=== PATIENT | female | born 1955 | race Caucasian/White ===

== ENCOUNTER → 2017-07-25 10:45 | Outpatient (CLI) | payer BC, SELFPAY ==
--- NOTE | 2017-07-25 11:05 | XR_ITS ---
XR chest 2V HISTORY: ITS.REASON: HTN ORDERING PHYSICIAN: David Ng PATIENT AGE: 62 years COMPARISON: 06/19/2016 FINDINGS: The cardiomediastinal silhouette and pulmonary vascularity are within normal limits. The lungs are clear without infiltrates, suspicious nodules, or pleural effusions. No acute bony abnormalities. IMPRESSION: No change with no acute finding
[2017-07-25 11:14] LABS: Basophils # 0.1 K/mm3 (0-0.2); Basophils % 0.9 % (0.1-2.0); Eosinophils # 0.2 K/mm3 (0.0-0.4); Eosinophils % 3.2 % (0.1-12.0); Hematocrit 39.4 % (37.0-47.0); Hemoglobin 12.9 g/dL (12.2-16.2); Lymphocytes % 32.4 K/mm3 (10-50); Mean Corpuscular HGB Conc 32.7 g/dL (31.8-35.4); Mean Corpuscular Hemoglobin 28.3 pg (27.0-31.2); Mean Corpuscular Volume 86.5 fl (81-99); Mean Platelet Volume 7.5 fl (7.4-10.4); Monocytes # 0.4 K/mm3 (0.1-1.0); Monocytes % 5.7 % (1.7-9.3); Neutrophils # 3.5 K/mm3 (1.8-7.8); Neutrophils % 57.9 % (37.0-80.0); Platelet Count 306 K/mm3 (142-424); Red Blood Count 4.55 M/mm3 (4.20-5.40); Red Cell Distribution Width 12.6 % (11.5-17.5); White Blood Count 6.1 K/mm3 (4.8-10.8)
[2017-07-25 11:35] LABS: Alanine Aminotransferase 77 U/L (12-78); Albumin Level 3.5 gm/dL (3.4-5.0); Albumin/Globulin Ratio 0.9 (1.1-1.8); Alkaline Phosphatase 89 U/L (46-116); Anion Gap 8.1 mEq/L (5-15); Aspartate Amino Transferase 33 U/L (15-37); Bilirubin,Total 0.5 mg/dL (0.2-1.0); Blood Urea Nitrogen 11 mg/dL (7-18); Calcium 8.9 mg/dL (8.5-10.1); Carbon Dioxide 32 mmol/L (21.0-32.0); Chloride 105 mmol/L (98-107); Creatinine,Serum 0.71 mg/dL (0.55-1.02); Estimated Glomerular Filt Rate 83 ml/min (>60); GFR (African American) 101 ML/MIN (>60); Globulin 3.7 gm/dl (1.3-3.2); Glucose 110 mg/dL (74-106); Potassium 4.1 mmoL/L (3.5-5.1); Sodium 141 mmol/L (136-145); Total Protein,Serum 7.2 gm/dL (6.4-8.2)
== END ==
PROVIDERS: PCP Internal Medicine; Visit Provider Orthopaedic Surgery
DX: M17.0 Bilateral primary osteoarthritis of knee (principal); Z01.818 Encounter for other preprocedural examination
CPT/HCPCS: 36415; 71046; 80053; 85025; 93005

== ENCOUNTER → 2017-09-10 10:00 | Outpatient (REF) | payer BC, SELFPAY ==
[2017-09-10 13:40] LABS: Basophils # 0.1 K/mm3 (0-0.2); Eosinophils # 0.4 K/mm3 (0.0-0.4); Eosinophils % 6.2 % (0.1-12.0); Hematocrit 35.4 % (37.0-47.0); Hemoglobin 11.5 g/dL (12.2-16.2); Lymphocytes # 1.8 K/mm3 (0.7-4.5); Lymphocytes % 30.2 K/mm3 (10-50); Mean Corpuscular HGB Conc 32.5 g/dL (31.8-35.4); Mean Corpuscular Hemoglobin 28.7 pg (27.0-31.2); Mean Corpuscular Volume 88.6 fl (81-99); Mean Platelet Volume 7.2 fl (7.4-10.4); Monocytes # 0.3 K/mm3 (0.1-1.0); Neutrophils # 3.4 K/mm3 (1.8-7.8); Neutrophils % 57.5 % (37.0-80.0); Platelet Count 432 K/mm3 (142-424); Red Blood Count 3.99 M/mm3 (4.20-5.40); Red Cell Distribution Width 12.6 % (11.5-17.5); White Blood Count 5.9 K/mm3 (4.8-10.8)
[2017-09-10 13:50] LABS: C-Reactive Protein 2.2 mg/L (0.0-0.9); Creatinine,Serum 0.76 mg/dL (0.55-1.02); Estimated Glomerular Filt Rate 77 ml/min (>60); GFR (African American) 93 ML/MIN (>60)
== END ==
LOC: LAB.CARL 10:00
PROVIDERS: Visit Provider Internal Medicine
DX: M71.461 Calcium deposit in bursa, right knee (principal)
CPT/HCPCS: 82565; 85025; 86140

== ENCOUNTER → 2017-09-17 11:08 | Outpatient (REF) | payer BC, SELFPAY ==
[2017-09-17 13:56] LABS: C-Reactive Protein 0.5 mg/L (0.0-0.9); Creatinine,Serum 0.83 mg/dL (0.55-1.02); Estimated Glomerular Filt Rate 70 ml/min (>60); GFR (African American) 84 ML/MIN (>60)
[2017-09-17 14:02] LABS: Basophils % 0.6 % (0.1-2.0); Eosinophils # 0.4 K/mm3 (0.0-0.4); Eosinophils % 7.5 % (0.1-12.0); Hematocrit 34.9 % (37.0-47.0); Hemoglobin 11.9 g/dL (12.2-16.2); Lymphocytes # 1.4 K/mm3 (0.7-4.5); Lymphocytes % 27.8 K/mm3 (10-50); Mean Corpuscular Hemoglobin 29.5 pg (27.0-31.2); Mean Corpuscular Volume 86.8 fl (81-99); Mean Platelet Volume 7.5 fl (7.4-10.4); Monocytes # 0.3 K/mm3 (0.1-1.0); Monocytes % 5.4 % (1.7-9.3); Neutrophils % 58.7 % (37.0-80.0); Platelet Count 342 K/mm3 (142-424); Red Blood Count 4.02 M/mm3 (4.20-5.40); White Blood Count 5.1 K/mm3 (4.8-10.8)
== END ==
LOC: LAB.CARL 11:08
PROVIDERS: Visit Provider Internal Medicine
DX: Z96.651 Presence of right artificial knee joint (principal)
CPT/HCPCS: 82565; 85025; 86140

== ENCOUNTER → 2017-09-24 10:20 | Outpatient (REF) | payer BC, SELFPAY ==
[2017-09-24 13:27] LABS: Basophils # 0.1 K/mm3 (0-0.2); Basophils % 2.1 % (0.1-2.0); Eosinophils # 0.5 K/mm3 (0.0-0.4); Eosinophils % 12.1 % (0.1-12.0); Hematocrit 34.3 % (37.0-47.0); Hemoglobin 11.3 g/dL (12.2-16.2); Lymphocytes # 1.4 K/mm3 (0.7-4.5); Mean Corpuscular HGB Conc 32.9 g/dL (31.8-35.4); Mean Corpuscular Hemoglobin 28.8 pg (27.0-31.2); Mean Corpuscular Volume 87.5 fl (81-99); Mean Platelet Volume 7.5 fl (7.4-10.4); Monocytes # 0.4 K/mm3 (0.1-1.0); Monocytes % 8.5 % (1.7-9.3); Neutrophils # 1.8 K/mm3 (1.8-7.8); Neutrophils % 44.4 % (37.0-80.0); Platelet Count 321 K/mm3 (142-424); Red Blood Count 3.92 M/mm3 (4.20-5.40); Red Cell Distribution Width 13.4 % (11.5-17.5); White Blood Count 4.1 K/mm3 (4.8-10.8)
[2017-09-24 16:44] LABS: C-Reactive Protein 1.3 mg/L (0.0-0.9); Creatinine,Serum 0.91 mg/dL (0.55-1.02); Estimated Glomerular Filt Rate 63 ml/min (>60); GFR (African American) 76 ML/MIN (>60)
== END ==
LOC: LAB.CARL 10:20
PROVIDERS: Visit Provider Internal Medicine
DX: Z96.651 Presence of right artificial knee joint (principal)
CPT/HCPCS: 82565; 85025; 86140

== ENCOUNTER → 2017-10-01 11:07 | Outpatient (REF) | payer BC, SELFPAY ==
[2017-10-01 14:09] LABS: C-Reactive Protein 0.3 mg/L (0.0-0.9); Creatinine,Serum 0.91 mg/dL (0.55-1.02); Estimated Glomerular Filt Rate 63 ml/min (>60); GFR (African American) 76 ML/MIN (>60)
[2017-10-01 14:35] LABS: Basophils # 0.1 K/mm3 (0-0.2); Basophils % 3.2 % (0.1-2.0); Eosinophils # 0.3 K/mm3 (0.0-0.4); Eosinophils % 9.3 % (0.1-12.0); Hematocrit 35.7 % (37.0-47.0); Lymphocytes # 1.2 K/mm3 (0.7-4.5); Lymphocytes % 33.3 K/mm3 (10-50); Mean Corpuscular HGB Conc 33.5 g/dL (31.8-35.4); Mean Corpuscular Hemoglobin 29.2 pg (27.0-31.2); Mean Corpuscular Volume 87.2 fl (81-99); Mean Platelet Volume 7.5 fl (7.4-10.4); Monocytes # 0.2 K/mm3 (0.1-1.0); Monocytes % 6.1 % (1.7-9.3); Neutrophils # 1.8 K/mm3 (1.8-7.8); Neutrophils % 48.1 % (37.0-80.0); Platelet Count 289 K/mm3 (142-424); Red Blood Count 4.09 M/mm3 (4.20-5.40); Red Cell Distribution Width 13.3 % (11.5-17.5); White Blood Count 3.7 K/mm3 (4.8-10.8)
== END ==
LOC: LAB.CARL 11:07
PROVIDERS: Visit Provider Internal Medicine
DX: Z96.651 Presence of right artificial knee joint (principal)
CPT/HCPCS: 82565; 85025; 86140

== ENCOUNTER → 2017-10-08 10:57 | Outpatient (REF) | payer BC, SELFPAY ==
[2017-10-08 14:29] LABS: Basophils # 0.1 K/mm3 (0-0.2); Eosinophils # 0.3 K/mm3 (0.0-0.4); Eosinophils % 7.6 % (0.1-12.0); Hematocrit 35.5 % (37.0-47.0); Hemoglobin 11.7 g/dL (12.2-16.2); Lymphocytes # 1.2 K/mm3 (0.7-4.5); Lymphocytes % 30.4 K/mm3 (10-50); Mean Corpuscular Hemoglobin 28.5 pg (27.0-31.2); Mean Corpuscular Volume 86.5 fl (81-99); Mean Platelet Volume 7.6 fl (7.4-10.4); Monocytes # 0.3 K/mm3 (0.1-1.0); Monocytes % 6.6 % (1.7-9.3); Neutrophils % 53.4 % (37.0-80.0); Platelet Count 267 K/mm3 (142-424); White Blood Count 3.8 K/mm3 (4.8-10.8)
[2017-10-08 14:36] LABS: Creatinine,Serum 0.96 mg/dL (0.55-1.02); Estimated Glomerular Filt Rate 59 ml/min (>60); GFR (African American) 71 ML/MIN (>60)
[2017-10-08 14:42] LABS: C-Reactive Protein < 0.2 mg/L (0.0-0.9)
== END ==
LOC: LAB.CARL 10:57
PROVIDERS: Visit Provider Internal Medicine
DX: T84.54XA Infection and inflammatory reaction due to internal left knee prosthesis, initial encounter (principal)
CPT/HCPCS: 82565; 85025; 86140

== ENCOUNTER → 2017-10-15 11:22 | Outpatient (REF) | payer BC, SELFPAY ==
[2017-10-15 13:24] LABS: Basophils # 0.1 K/mm3 (0-0.2); Eosinophils # 0.3 K/mm3 (0.0-0.4); Eosinophils % 7.7 % (0.1-12.0); Hematocrit 36.3 % (37.0-47.0); Hemoglobin 12.2 g/dL (12.2-16.2); Lymphocytes # 1.2 K/mm3 (0.7-4.5); Lymphocytes % 30.7 K/mm3 (10-50); Mean Corpuscular HGB Conc 33.5 g/dL (31.8-35.4); Mean Corpuscular Hemoglobin 28.4 pg (27.0-31.2); Mean Corpuscular Volume 84.6 fl (81-99); Mean Platelet Volume 7.3 fl (7.4-10.4); Monocytes # 0.3 K/mm3 (0.1-1.0); Monocytes % 8.5 % (1.7-9.3); Neutrophils # 1.9 K/mm3 (1.8-7.8); Platelet Count 282 K/mm3 (142-424); Red Blood Count 4.29 M/mm3 (4.20-5.40); Red Cell Distribution Width 12.9 % (11.5-17.5); White Blood Count 3.8 K/mm3 (4.8-10.8)
[2017-10-15 14:33] LABS: C-Reactive Protein 0.3 mg/L (0.0-0.9); Creatinine,Serum 0.74 mg/dL (0.55-1.02); Estimated Glomerular Filt Rate 80 ml/min (>60); GFR (African American) 96 ML/MIN (>60)
== END ==
LOC: LAB.CARL 11:22
PROVIDERS: Visit Provider Internal Medicine
DX: T84.54XA Infection and inflammatory reaction due to internal left knee prosthesis, initial encounter (principal)
CPT/HCPCS: 82565; 85025; 86140

== ENCOUNTER → 2017-12-14 08:28 | Outpatient (CLI) | payer BC, SELFPAY ==
[2017-12-14 08:43] LABS: Basophils # 0.1 K/mm3 (0-0.2); Basophils % 1.4 % (0.1-2.0); Eosinophils # 0.3 K/mm3 (0.0-0.4); Eosinophils % 6.8 % (0.1-12.0); Hematocrit 38.9 % (37.0-47.0); Hemoglobin 13.1 g/dL (12.2-16.2); Lymphocytes # 1.9 K/mm3 (0.7-4.5); Lymphocytes % 38.5 K/mm3 (10-50); Mean Corpuscular HGB Conc 33.8 g/dL (31.8-35.4); Mean Corpuscular Hemoglobin 27.7 pg (27.0-31.2); Mean Corpuscular Volume 82.2 fl (81-99); Mean Platelet Volume 7.3 fl (7.4-10.4); Monocytes # 0.3 K/mm3 (0.1-1.0); Monocytes % 6.2 % (1.7-9.3); Neutrophils # 2.3 K/mm3 (1.8-7.8); Neutrophils % 47.1 % (37.0-80.0); Platelet Count 339 K/mm3 (142-424); Red Blood Count 4.74 M/mm3 (4.20-5.40); Red Cell Distribution Width 12.9 % (11.5-17.5); White Blood Count 4.9 K/mm3 (4.8-10.8)
[2017-12-14 09:09] LABS: Creatinine,Serum 0.85 mg/dL (0.55-1.02); Estimated Glomerular Filt Rate 68 ml/min (>60); GFR (African American) 82 ML/MIN (>60)
[2017-12-14 09:13] LABS: C-Reactive Protein < 0.2 mg/L (0.0-0.9)
== END ==
PROVIDERS: Visit Provider Physician Assistant Medical
DX: T81.4XXA Infection following a procedure, initial encounter (principal)
CPT/HCPCS: 36415; 82565; 85025; 86140

== ENCOUNTER → 2018-05-13 10:54 | Outpatient (CLI) | payer BC, SELFPAY ==
[2018-05-13 13:55] LABS: C-Reactive Protein 4.3 mg/L (0.0-0.9)
[2018-05-13 13:58] LABS: Basophils % 0.8 % (0.1-2.0); Eosinophils # 0.2 K/mm3 (0.0-0.4); Eosinophils % 3.7 % (0.1-12.0); Hematocrit 34.9 % (37.0-47.0); Hemoglobin 11.6 g/dL (12.2-16.2); Lymphocytes # 1.5 K/mm3 (0.7-4.5); Lymphocytes % 33.7 % (10-50); Mean Corpuscular HGB Conc 33.2 g/dL (31.8-35.4); Mean Corpuscular Hemoglobin 28.2 pg (27.0-31.2); Mean Corpuscular Volume 84.7 fl (81-99); Mean Platelet Volume 8.4 fl (7.4-10.4); Monocytes # 0.3 K/mm3 (0.1-1.0); Monocytes % 7.5 % (1.7-9.3); Neutrophils # 2.4 K/mm3 (1.8-7.8); Neutrophils % 54.2 % (37.0-80.0); Platelet Count 382 K/mm3 (142-424); Red Blood Count 4.11 M/mm3 (4.20-5.40); Red Cell Distribution Width 12.5 % (11.5-17.5); White Blood Count 4.5 K/mm3 (4.8-10.8)
[2018-05-13 16:12] LABS: Erythrocyte Sedimentation Rate 31 mm/hr (0-30)
== END ==
PROVIDERS: PCP Internal Medicine; Visit Provider Orthopaedic Surgery
DX: T84.54XA Infection and inflammatory reaction due to internal left knee prosthesis, initial encounter (principal)
CPT/HCPCS: 36415; 85025; 85651; 86140

== ENCOUNTER → 2018-08-21 09:56 | Outpatient (CLI) | payer BC, SELFPAY ==
[2018-08-21 14:04] LABS: Basophils # 0.1 K/mm3 (0-0.2); Basophils % 0.9 % (0.1-2.0); Eosinophils # 0.2 K/mm3 (0.0-0.4); Eosinophils % 3.3 % (0.1-12.0); Hematocrit 36.5 % (37.0-47.0); Hemoglobin 11.9 g/dL (12.2-16.2); Lymphocytes # 1.6 K/mm3 (0.7-4.5); Lymphocytes % 26.7 % (10-50); Mean Corpuscular HGB Conc 32.8 g/dL (31.8-35.4); Mean Corpuscular Hemoglobin 26.5 pg (27.0-31.2); Mean Corpuscular Volume 80.9 fl (81-99); Monocytes # 0.3 K/mm3 (0.1-1.0); Neutrophils # 3.8 K/mm3 (1.8-7.8); Neutrophils % 64.1 % (37.0-80.0); Platelet Count 497 K/mm3 (142-424); Red Blood Count 4.51 M/mm3 (4.20-5.40); Red Cell Distribution Width 13.7 % (11.5-17.5)
[2018-08-21 14:39] LABS: Alanine Aminotransferase 46 U/L (12-78); Albumin Level 3.7 gm/dL (3.4-5.0); Albumin/Globulin Ratio 0.9 (1.1-1.8); Alkaline Phosphatase 139 U/L (46-116); Anion Gap 15.3 mEq/L (5-15); Aspartate Amino Transferase 27 U/L (15-37); Bilirubin,Total 0.4 mg/dL (0.2-1.0); Blood Urea Nitrogen 15 mg/dL (7-18); C-Reactive Protein 3.9 mg/L (0.0-0.9); Calcium 9.5 mg/dL (8.5-10.1); Carbon Dioxide 26 mmol/L (21.0-32.0); Chloride 103 mmol/L (98-107); Creatinine,Serum 0.79 mg/dL (0.55-1.02); Estimated Glomerular Filt Rate 74 ml/min (>60); GFR (African American) 89 ML/MIN (>60); Globulin 4.1 gm/dl (1.3-3.2); Glucose 99 mg/dL (74-106); Potassium 4.3 mmoL/L (3.5-5.1); Sodium 140 mmol/L (136-145); Total Protein,Serum 7.8 gm/dL (6.4-8.2)
[2018-08-21 14:40] LABS: Erythrocyte Sedimentation Rate 61 mm/hr (0-30)
== END ==
PROVIDERS: PCP Internal Medicine; Visit Provider Internal Medicine
DX: M25.461 Effusion, right knee (principal); Z96.651 Presence of right artificial knee joint
CPT/HCPCS: 36415; 80053; 85025; 85651; 86140

== ENCOUNTER → 2018-09-24 10:54 | Outpatient (CLI) | payer BC, SELFPAY ==
[2018-09-24 14:23] LABS: Basophils # 0.1 K/mm3 (0-0.2); Eosinophils # 0.2 K/mm3 (0.0-0.4); Eosinophils % 4.2 % (0.1-12.0); Hematocrit 35.2 % (37.0-47.0); Hemoglobin 11.8 g/dL (12.2-16.2); Lymphocytes # 2.1 K/mm3 (0.7-4.5); Mean Corpuscular HGB Conc 33.4 g/dL (31.8-35.4); Mean Corpuscular Hemoglobin 26.5 pg (27.0-31.2); Mean Corpuscular Volume 79.3 fl (81-99); Mean Platelet Volume 7.2 fl (7.4-10.4); Monocytes # 0.3 K/mm3 (0.1-1.0); Monocytes % 5.5 % (1.7-9.3); Neutrophils # 2.7 K/mm3 (1.8-7.8); Neutrophils % 50.4 % (37.0-80.0); Platelet Count 370 K/mm3 (142-424); Red Blood Count 4.44 M/mm3 (4.20-5.40); Red Cell Distribution Width 14.2 % (11.5-17.5); White Blood Count 5.3 K/mm3 (4.8-10.8)
[2018-09-24 15:05] LABS: Erythrocyte Sedimentation Rate 14 mm/hr (0-30)
[2018-09-24 16:05] LABS: Alanine Aminotransferase 41 U/L (12-78); Albumin Level 3.6 gm/dL (3.4-5.0); Alkaline Phosphatase 106 U/L (46-116); Anion Gap 14.7 mEq/L (5-15); Aspartate Amino Transferase 20 U/L (15-37); Bilirubin,Total 0.4 mg/dL (0.2-1.0); Blood Urea Nitrogen 14 mg/dL (7-18); C-Reactive Protein 1.3 mg/L (0.0-0.9); Calcium 9.2 mg/dL (8.5-10.1); Carbon Dioxide 26 mmol/L (21.0-32.0); Chloride 103 mmol/L (98-107); Creatinine,Serum 0.75 mg/dL (0.55-1.02); Estimated Glomerular Filt Rate 78 ml/min (>60); GFR (African American) 94 ML/MIN (>60); Globulin 3.7 gm/dl (1.3-3.2); Glucose 96 mg/dL (74-106); Potassium 3.7 mmoL/L (3.5-5.1); Sodium 140 mmol/L (136-145); Thyroid Stimulating Hormone 0.14 uIU/ml (0.358-3.740); Total Protein,Serum 7.3 gm/dL (6.4-8.2)
== END ==
PROVIDERS: PCP Internal Medicine; Visit Provider Internal Medicine
DX: E03.9 Hypothyroidism, unspecified (principal); E78.5 Hyperlipidemia, unspecified; I10 Essential (primary) hypertension; R79.82 Elevated C-reactive protein (CRP)
CPT/HCPCS: 36415; 80053; 84443; 85025; 85651; 86140

== ENCOUNTER → 2018-11-20 10:57 | Outpatient (CLI) | payer BC, SELFPAY ==
[2018-11-20 13:58] LABS: Basophils # 0.1 K/mm3 (0-0.2); Basophils % 1.4 % (0.1-2.0); Eosinophils # 0.2 K/mm3 (0.0-0.4); Eosinophils % 4.4 % (0.1-12.0); Hematocrit 39.8 % (37.0-47.0); Hemoglobin 12.8 g/dL (12.2-16.2); Lymphocytes % 36.7 % (10-50); Mean Corpuscular HGB Conc 32.2 g/dL (31.8-35.4); Mean Corpuscular Hemoglobin 27.2 pg (27.0-31.2); Mean Corpuscular Volume 84.4 fl (81-99); Mean Platelet Volume 7.5 fl (7.4-10.4); Monocytes # 0.3 K/mm3 (0.1-1.0); Monocytes % 4.9 % (1.7-9.3); Neutrophils # 2.9 K/mm3 (1.8-7.8); Neutrophils % 52.7 % (37.0-80.0); Platelet Count 373 K/mm3 (142-424); Red Blood Count 4.71 M/mm3 (4.20-5.40); Red Cell Distribution Width 15.1 % (11.5-17.5); White Blood Count 5.4 K/mm3 (4.8-10.8)
[2018-11-20 14:22] LABS: C-Reactive Protein 1.2 mg/L (0.0-0.9)
[2018-11-20 15:08] LABS: Erythrocyte Sedimentation Rate 19 mm/hr (0-30)
== END ==
PROVIDERS: PCP Internal Medicine; Visit Provider Internal Medicine
DX: T84.53XA Infection and inflammatory reaction due to internal right knee prosthesis, initial encounter (principal)
CPT/HCPCS: 36415; 85025; 85651; 86140

== ENCOUNTER → 2019-01-23 10:17 | Outpatient (CLI) | payer BC, SELFPAY ==
[2019-01-23 15:33] LABS: Basophils # 0.1 K/mm3 (0-0.2); Basophils % 1.2 % (0.1-2.0); Eosinophils # 0.2 K/mm3 (0.0-0.4); Eosinophils % 4.9 % (0.1-12.0); Hematocrit 35.8 % (37.0-47.0); Hemoglobin 11.3 g/dL (12.2-16.2); Lymphocytes # 1.7 K/mm3 (0.7-4.5); Lymphocytes % 34.3 % (10-50); Mean Corpuscular HGB Conc 31.7 g/dL (31.8-35.4); Mean Corpuscular Hemoglobin 26.9 pg (27.0-31.2); Mean Corpuscular Volume 85.1 fl (81-99); Mean Platelet Volume 7.3 fl (7.4-10.4); Monocytes # 0.2 K/mm3 (0.1-1.0); Neutrophils # 2.7 K/mm3 (1.8-7.8); Neutrophils % 55.6 % (37.0-80.0); Platelet Count 569 K/mm3 (142-424); Red Blood Count 4.21 M/mm3 (4.20-5.40); Red Cell Distribution Width 13.3 % (11.5-17.5); White Blood Count 4.9 K/mm3 (4.8-10.8)
[2019-01-23 15:47] LABS: C-Reactive Protein 1.5 mg/dL (0.0-0.9)
[2019-01-23 15:56] LABS: Erythrocyte Sedimentation Rate 66 mm/hr (0-30)
== END ==
PROVIDERS: PCP Internal Medicine; Visit Provider Internal Medicine
DX: L08.9 Local infection of the skin and subcutaneous tissue, unspecified (principal); M25.561 Pain in right knee
CPT/HCPCS: 36415; 85025; 85651; 86140

== ENCOUNTER → 2019-05-14 10:04 | Outpatient (CLI) | payer BC, SELFPAY ==
[2019-05-14 14:55] LABS: Basophils # 0.1 K/mm3 (0-0.2); Basophils % 1.2 % (0.1-2.0); Eosinophils # 0.2 K/mm3 (0.0-0.4); Hemoglobin 11.9 g/dL (12.2-16.2); Lymphocytes # 1.9 K/mm3 (0.7-4.5); Lymphocytes % 28.3 % (10-50); Mean Corpuscular HGB Conc 31.4 g/dL (31.8-35.4); Mean Corpuscular Hemoglobin 26.2 pg (27.0-31.2); Mean Corpuscular Volume 83.3 fl (81-99); Mean Platelet Volume 8.2 fl (7.4-10.4); Monocytes # 0.3 K/mm3 (0.1-1.0); Monocytes % 4.9 % (1.7-9.3); Neutrophils # 4.1 K/mm3 (1.8-7.8); Neutrophils % 62.6 % (37.0-80.0); Platelet Count 433 K/mm3 (142-424); Red Blood Count 4.56 M/mm3 (4.20-5.40); Red Cell Distribution Width 13.5 % (11.5-17.5); White Blood Count 6.6 K/mm3 (4.8-10.8)
[2019-05-14 15:50] LABS: C-Reactive Protein 2.5 mg/dL (0.0-0.9)
[2019-05-14 17:30] LABS: Erythrocyte Sedimentation Rate 24 mm/hr (0-30)
== END ==
PROVIDERS: Visit Provider Internal Medicine
DX: L08.9 Local infection of the skin and subcutaneous tissue, unspecified (principal); M25.561 Pain in right knee
CPT/HCPCS: 36415; 85025; 85651; 86140

== ENCOUNTER → 2019-06-23 11:30 | Outpatient (CLI) | payer BC, SELFPAY ==
[2019-06-23 14:22] LABS: Reticulocyte % (Auto) 1.2 % (0.9-3.2)
[2019-06-24 09:45] LABS: Iron 61 ug/dL (27-139); UIBC 175 ug/dL (118-369)
[2019-06-25 10:47] LABS: Vitamin B12 453 pg/mL (232-1245)
[2019-06-25 10:48] LABS: Iron Saturation 26 % (15-55)
== END ==
PROVIDERS: Visit Provider Internal Medicine
DX: D64.9 Anemia, unspecified (principal)
CPT/HCPCS: 36415; 82607; 83540; 83550; 85044

== ENCOUNTER → 2019-07-15 14:03 | Outpatient (POV) | payer BC, SELFPAY | PROVIDERS: PCP Dermatology; Visit Provider Dermatology | DX: Z00.00 Encounter for general adult medical examination without abnormal findings (principal) ==

== ENCOUNTER → 2019-11-17 09:53 | Outpatient (CLI) | payer BC, SELFPAY ==
[2019-11-17 13:55] LABS: C-Reactive Protein 30.9 mg/L (0-4)
[2019-11-17 15:00] LABS: Erythrocyte Sedimentation Rate 53 mm/hr (0-30)
[2019-11-17 15:37] LABS: Basophils # 0.1 K/mm3 (0-0.2); Eosinophils # 0.3 K/mm3 (0.0-0.4); Eosinophils % 4.7 % (0.1-12.0); Hematocrit 34.5 % (37.0-47.0); Hemoglobin 11.7 g/dL (12.2-16.2); Lymphocytes % 34.4 % (10-50); Mean Corpuscular HGB Conc 33.9 g/dL (31.8-35.4); Mean Corpuscular Hemoglobin 27.7 pg (27.0-31.2); Mean Corpuscular Volume 81.6 fl (81-99); Monocytes # 0.3 K/mm3 (0.1-1.0); Monocytes % 5.6 % (1.7-9.3); Neutrophils # 3.1 K/mm3 (1.8-7.8); Neutrophils % 54.2 % (37.0-80.0); Platelet Count 448 K/mm3 (142-424); Red Blood Count 4.23 M/mm3 (4.20-5.40); Red Cell Distribution Width 13.9 % (11.5-17.5); White Blood Count 5.7 K/mm3 (4.8-10.8)
== END ==
PROVIDERS: PCP Internal Medicine; Visit Provider Internal Medicine
DX: D63.8 Anemia in other chronic diseases classified elsewhere (principal); T84.59XS Infection and inflammatory reaction due to other internal joint prosthesis, sequela; Z96.659 Presence of unspecified artificial knee joint
CPT/HCPCS: 36415; 85025; 85651; 86140

== ENCOUNTER → 2020-03-08 11:46 | Outpatient (CLI) | payer BC, SELFPAY | PROVIDERS: PCP Internal Medicine; Visit Provider Internal Medicine | DX: Z20.828 Contact with and (suspected) exposure to other viral communicable diseases (principal); U07.1 COVID-19; R05 Cough; R09.89 Other specified symptoms and signs involving the circulatory and respiratory systems | CPT/HCPCS: U0003 ==

== ENCOUNTER → 2020-05-25 11:18 | Outpatient (CLI) | payer BC, SELFPAY ==
[2020-05-25 13:34] LABS: Basophils # 0.1 K/mm3 (0-0.2); Eosinophils # 0.3 K/mm3 (0.0-0.4); Eosinophils % 4.4 % (0.1-12.0); Hematocrit 37.3 % (37.0-47.0); Hemoglobin 11.9 g/dL (12.2-16.2); Lymphocytes # 1.9 K/mm3 (0.7-4.5); Lymphocytes % 28.2 % (10-50); Mean Corpuscular HGB Conc 31.9 g/dL (31.8-35.4); Mean Corpuscular Hemoglobin 26.8 pg (27.0-31.2); Mean Platelet Volume 7.1 fl (7.4-10.4); Monocytes # 0.3 K/mm3 (0.1-1.0); Monocytes % 4.3 % (1.7-9.3); Neutrophils # 4.1 K/mm3 (1.8-7.8); Neutrophils % 61.1 % (37.0-80.0); Platelet Count 489 K/mm3 (142-424); Red Blood Count 4.44 M/mm3 (4.20-5.40); Red Cell Distribution Width 14.7 % (11.5-17.5); White Blood Count 6.7 K/mm3 (4.8-10.8)
[2020-05-25 13:59] LABS: C-Reactive Protein 26.6 mg/L (0-4)
[2020-05-25 14:08] LABS: Erythrocyte Sedimentation Rate 46 mm/hr (0-30)
== END ==
PROVIDERS: Visit Provider Internal Medicine
DX: M00.9 Pyogenic arthritis, unspecified (principal); D63.8 Anemia in other chronic diseases classified elsewhere
CPT/HCPCS: 36415; 85025; 85651; 86140

== ENCOUNTER → 2020-10-26 09:29 | Outpatient (POV) | payer BC, SELFPAY | PROVIDERS: Visit Provider Dermatology | DX: Z00.00 Encounter for general adult medical examination without abnormal findings (principal) ==

== ENCOUNTER 2021-07-22 14:03 | Emergency (ER) | payer BC, SELFPAY ==
[2021-07-22 14:04] VITALS: BP 141/76; PULSE 79; RESP 16; TEMP 36.7; O2SAT 96; BMI 34.4
--- NOTE | 2021-07-22 14:14 | ECG_ITS ---
APPROVED REPORT Exam: Resting ECG HR:76 bpm ECG Measurements Heart Rate 76 AXES MT 147 P -30 QRSd 98 QRS -16 QT 415 T 60 QTc 445 Conclusion SINUS RHYTHM WITH OCCASIONAL SUPRAVENTRICULAR PREMATURE COMPLEXES NONSPECIFIC ST & T-WAVE ABNORMALITY BORDERLINE ECG UNCONFIRMED REPORT Electronically signed by : Bj Abdalla MD 07/22/2021 19:17:03
[2021-07-22 14:35] LABS: Chloride 101 mmol/L (98-107); Sodium 134 mmol/L (136-145)
[2021-07-22 14:37] LABS: Alanine Aminotransferase 32 U/L (12-78); Blood Urea Nitrogen 14 mg/dl (7-17); Creatinine Clearance Estimated 87 mL/min (50-200); Estimated Glomerular Filt Rate 63 ml/min (>60); GFR (African American) 76 ML/MIN (>60)
[2021-07-22 14:38] LABS: Alkaline Phosphatase 152 U/L (38-126); Aspartate Amino Transferase 48 U/L (14-36); Bilirubin,Total 0.7 mg/dl (0.2-1.3); Carbon Dioxide 25 mmol/L (22.0-30.0)
[2021-07-22 14:40] LABS: Anion Gap 11.3 mEq/L (5-15); Potassium 3.3 mmoL/L (3.5-5.1)
[2021-07-22 14:43] LABS: Albumin Level 4.3 g/dl (3.5-5.0); Albumin/Globulin Ratio 1.3 (1.1-1.8); Calcium 8.7 mg/dl (8.4-10.2); Globulin 3.4 g/dL (1.3-3.2); Glucose 120 mg/dl (74-100); Total Protein,Serum 7.7 g/dl (6.3-8.2)
[2021-07-22 14:46] LABS: Basophils # 0.1 K/mm3 (0-0.2); Basophils % 0.7 % (0.1-2.0); Eosinophils # 0.2 K/mm3 (0.0-0.4); Eosinophils % 1.6 % (0.1-12.0); Hemoglobin 11.4 g/dL (12.2-16.2); Lymphocytes # 1.5 K/mm3 (0.7-4.5); Lymphocytes % 12.1 % (10-50); Mean Corpuscular HGB Conc 33.5 g/dL (31.8-35.4); Mean Corpuscular Hemoglobin 27.8 pg (27.0-31.2); Monocytes # 0.4 K/mm3 (0.1-1.0); Monocytes % 3.3 % (1.7-9.3); Neutrophils % 82.4 % (37.0-80.0); Platelet Count 424 K/mm3 (142-424); Red Blood Count 4.09 M/mm3 (4.20-5.40); Red Cell Distribution Width 13.3 % (11.5-17.5); White Blood Count 12.2 K/mm3 (4.8-10.8)
[2021-07-22 15:09] LABS: Thyroid Stimulating Hormone 6.77 uIU/mL (0.465-4.68)
[2021-07-22 15:10] LABS: Troponin I < 0.01 ng/ml (0.00-0.034)
--- NOTE | 2021-07-22 15:56 | HMH.EDDIZZ ---
ED Disposition Clinical Impression: Benign paroxysmal positional vertigo Qualifiers: Laterality: unspecified laterality Qualified Code(s): H81.10 - Benign paroxysmal vertigo, unspecified ear Disposition: Home, Self-Care Condition on Discharge: Good Instructions: Vertigo Prescriptions: Meclizine HCl [Antivert 25mg tablet] 25 mg PO TID #30 tab Transmission Status: Pending to [facility] Referrals: [facility] [Primary Care Provider] - - Critical Care Critical Care Time: No Attestation: On 07/22/21, the high probability of a clinically significant, sudden or life threatening deterioration of the following system(s) required my full and direct attention, intervention and personal management. The time I documented below is in addition to time spent performing reported procedures but includes the following listed in this critical care notation. Medical Decision Making - Medical Records Medical records reviewed: Yes: I reviewed the patient's medical records. - Leo Inquiry Pt receiving controlled substance: No Vital Signs: 07/22/21 14:04 07/22/21 16:23 Temperature 98.1 F Temperature Source Oral Pulse Rate 87 Pulse Rate [Radial] 79 Respiratory Rate 16 16 Blood Pressure 131/60 Blood Pressure [Right Arm] 141/76 H Blood Pressure Mean [Right Arm] 97 Blood Pressure Source Automatic Cuff Blood Pressure Position Left Lateral Blood Pressure Position [Right Arm] Sitting 02 Sat by Pulse Oximetry 96 96 Oxygen Delivery Method Room Air Room Air - Lab Data Lab Results 07/22/21 14:12: WBC 12.2 H, RBC 4.09 L, Hgb 11.4 L, Hct 34.0 L, MCV 83.0, MCH 27.8, MCHC 33.5, RDW 13.3, Plt Count 424, MPV 7.0 L, Neut % (Auto) 82.4 H, Lymph % (Auto) 12.1, Hudson % (Auto) 3.3, Eos % (Auto) 1.6, Baso % (Auto) 0.7, Neut # (Auto) 10.0 H, Lymph # (Auto) 1.5, Hudson # (Auto) 0.4, Eos # (Auto) 0.2, Baso # (Auto) 0.1 07/22/21 14:20: Sodium 134 L, Potassium 3.3 L, Chloride 101, Carbon Dioxide 25, Anion Gap 11.3, BUN 14, Creatinine 0.90, Estimated Creat Clear 87, Estimated GFR 63, Est GFR ( Amer) 76, Glucose 120 H, Calcium 8.7, Total Bilirubin 0.7, AST 48 H, ALT 32, Alkaline Phosphatase 152 H, Troponin I < 0.01, Total Protein 7.7, Albumin 4.3, Globulin 3.4 H, Albumin/Globulin Ratio 1.3, TSH 6.77 H Result diagrams: 07/22/21 14:12 07/22/21 14:20 Orders (Tests/Meds): ED MEDICATIONS Discontinued Medications Generic Name Dose Route Start Last Admin Trade Name Freq PRN Reason Stop Dose Admin Sodium Chloride 1,000 mls @ 999 mls/hr 07/22/21 14:15 07/22/21 14:46 Sod Chlor 0.9% 1000ml Bag IV 07/22/21 15:15 999 mls/hr .Q1H1M ELVIA Administration Promethazine HCl 25 mg 07/22/21 14:13 07/22/21 14:46 Promethazine Hcl 25mg/Ml 1ml Vial IV 07/22/21 14:14 25 mg ONCE ONE Administration Sodium Chloride 25 ml 07/22/21 14:13 Sodium Chloride 0.9% 25ml Bag IV 07/22/21 14:14 ONCE ONE ORDERS Category Date Time Status Troponin I Q3H Lab 07/22/21 17:15 Ordered Troponin I Q3H Lab 07/22/21 20:15 Ordered - ECG Data Tracing #1 I reviewed this ECG and interpreted as documented below: No ventricular rate 76 bpm, normal CT interval, normal QTC. Sinus rhythm with nonspecific changes. ECG initial impression date: 07/22/21 ECG initial impression time: 14:14 Normal Sinus Rhythm: Yes - Reevaluation(s) Time: 16:32 Reevaluation #1: On reevaluation, patient is feeling much better. Repeat examination does not show any neurologic deficit. The patient is ambulatory. Her dizziness is significant and probably improved. She is tolerating oral intake. I do believe symptoms are consistent with benign positional vertigo. Patient be placed on a short course of medications. She given strict return precautions. Verbalized understanding. Medical Decision Narrative: This is a 66-year-old female presented to the emergency department with some vertiginous symptoms. Patient's overall findings are consis
[2021-07-22 16:23] VITALS: BP 131/60; PULSE 87; RESP 16; O2SAT 96
--- NOTE | 2021-07-22 16:28 | PC.NURSE ---
pt reports she is feeling better, states no needs at this time
[2021-07-22 16:45] VITALS: BP 127/65; PULSE 78; RESP 16; TEMP 36.7; O2SAT 97
== END 2021-07-22 16:45 | disposition home or self-care (01) ==
PROVIDERS: Emergency Provider Emergency Medicine; PCP Internal Medicine
DX: H81.10 Benign paroxysmal vertigo, unspecified ear (principal); Z88.2 Allergy status to sulfonamides
CPT/HCPCS: 80053; 84443; 84484; 85025; 93005; 96365; 96375; 99282; 99284

== ENCOUNTER → 2022-05-01 13:28 | Outpatient (CLI) | payer BC, SELFPAY ==
[2022-05-01 14:10] LABS: Basophils # 0.1 K/mm3 (0-0.2); Basophils % 1.2 % (0.1-2.0); Eosinophils # 0.2 K/mm3 (0.0-0.4); Eosinophils % 2.6 % (0.1-12.0); Hematocrit 28.2 % (37.0-47.0); Hemoglobin 8.9 g/dL (12.2-16.2); Lymphocytes # 1.2 K/mm3 (0.7-4.5); Lymphocytes % 14.1 % (10-50); Mean Corpuscular HGB Conc 31.6 g/dL (31.8-35.4); Mean Corpuscular Hemoglobin 26.7 pg (27.0-31.2); Mean Corpuscular Volume 84.4 fl (81-99); Mean Platelet Volume 7.4 fl (7.4-10.4); Monocytes # 0.3 K/mm3 (0.1-1.0); Monocytes % 4.2 % (1.7-9.3); Neutrophils # 6.4 K/mm3 (1.8-7.8); Platelet Count 520 K/mm3 (142-424); Red Blood Count 3.34 M/mm3 (4.20-5.40); Red Cell Distribution Width 15.6 % (11.5-17.5); White Blood Count 8.2 K/mm3 (4.8-10.8)
[2022-05-01 15:12] LABS: Alanine Aminotransferase 23 U/L (12-78); Albumin Level 3.8 g/dl (3.5-5.0); Albumin/Globulin Ratio 1.4 (1.1-1.8); Alkaline Phosphatase 168 U/L (38-126); Anion Gap 11.8 mEq/L (5-15); Aspartate Amino Transferase 29 U/L (14-36); Bilirubin,Direct 0.2 mg/dl (0.0-0.4); Bilirubin,Indirect 0.2 mg/dL (0.0-0.9); Bilirubin,Total 0.4 mg/dl (0.2-1.3); Blood Urea Nitrogen 20 mg/dl (7-17); Calcium 9.6 mg/dl (8.4-10.2); Carbon Dioxide 25 mmol/L (22.0-30.0); Chloride 104 mmol/L (98-107); Creatine Kinase 72 U/L (30-135); Estimated Glomerular Filt Rate 55 ml/min (>60); GFR (African American) 67 ML/MIN (>60); Globulin 2.8 g/dL (1.3-3.2); Glucose 102 mg/dl (74-100); Potassium 3.8 mmoL/L (3.5-5.1); Sodium 137 mmol/L (136-145); Total Protein,Serum 6.6 g/dl (6.3-8.2)
[2022-05-01 15:18] LABS: C-Reactive Protein 37.4 mg/L (0-4)
== END ==
PROVIDERS: Visit Provider Internal Medicine
DX: H81.10 Benign paroxysmal vertigo, unspecified ear (principal); R11.10 Vomiting, unspecified; R79.82 Elevated C-reactive protein (CRP); D64.9 Anemia, unspecified; R74.8 Abnormal levels of other serum enzymes
CPT/HCPCS: 80053; 82248; 82550; 85025; 86140

== ENCOUNTER → 2022-05-08 15:15 | Outpatient (CLI) | payer BC, SELFPAY ==
[2022-05-08 16:47] LABS: Basophils # 0.1 K/mm3 (0-0.2); Basophils % 0.9 % (0.1-2.0); Eosinophils # 0.3 K/mm3 (0.0-0.4); Eosinophils % 4.3 % (0.1-12.0); Hematocrit 31.7 % (37.0-47.0); Hemoglobin 10.3 g/dL (12.2-16.2); Lymphocytes # 1.4 K/mm3 (0.7-4.5); Lymphocytes % 19.7 % (10-50); Mean Corpuscular HGB Conc 32.4 g/dL (31.8-35.4); Mean Corpuscular Hemoglobin 26.6 pg (27.0-31.2); Mean Corpuscular Volume 82.1 fl (81-99); Monocytes # 0.4 K/mm3 (0.1-1.0); Monocytes % 5.1 % (1.7-9.3); Neutrophils # 4.9 K/mm3 (1.8-7.8); Neutrophils % 69.9 % (37.0-80.0); Platelet Count 570 K/mm3 (142-424); Red Blood Count 3.86 M/mm3 (4.20-5.40); Red Cell Distribution Width 15.2 % (11.5-17.5); White Blood Count 7.1 K/mm3 (4.8-10.8)
[2022-05-08 16:48] LABS: Chloride 104 mmol/L (98-107); Sodium 139 mmol/L (136-145)
[2022-05-08 16:49] LABS: Potassium 3.5 mmoL/L (3.5-5.1)
[2022-05-08 16:51] LABS: Alanine Aminotransferase 28 U/L (12-78); Alkaline Phosphatase 157 U/L (38-126); Anion Gap 14.5 mEq/L (5-15); Aspartate Amino Transferase 42 U/L (14-36); Bilirubin,Direct 0.3 mg/dl (0.0-0.4); Bilirubin,Total 0.3 mg/dl (0.2-1.3); Blood Urea Nitrogen 20 mg/dl (7-17); Calcium 10.4 mg/dl (8.4-10.2); Carbon Dioxide 24 mmol/L (22.0-30.0); Creatine Kinase 107 U/L (30-135); Estimated Glomerular Filt Rate 72 ml/min (>60); GFR (African American) 87 ML/MIN (>60); Glucose 109 mg/dl (74-100)
[2022-05-08 16:52] LABS: Albumin Level 4.4 g/dl (3.5-5.0); Albumin/Globulin Ratio 1.2 (1.1-1.8); Globulin 3.6 g/dL (1.3-3.2)
[2022-05-08 16:57] LABS: C-Reactive Protein 32.6 mg/L (0-4)
== END ==
PROVIDERS: PCP Internal Medicine; Visit Provider Internal Medicine
DX: M25.561 Pain in right knee (principal)
CPT/HCPCS: 80053; 82248; 82550; 85025; 86140

== ENCOUNTER → 2022-05-15 11:48 | Outpatient (CLI) | payer BC, SELFPAY ==
[2022-05-15 12:32] LABS: Basophils # 0.1 K/mm3 (0-0.2); Eosinophils # 0.5 K/mm3 (0.0-0.4); Eosinophils % 10.1 % (0.1-12.0); Hematocrit 29.7 % (37.0-47.0); Hemoglobin 9.7 g/dL (12.2-16.2); Lymphocytes # 1.1 K/mm3 (0.7-4.5); Lymphocytes % 24.1 % (10-50); Mean Corpuscular HGB Conc 32.5 g/dL (31.8-35.4); Mean Corpuscular Hemoglobin 26.3 pg (27.0-31.2); Mean Corpuscular Volume 80.8 fl (81-99); Mean Platelet Volume 8.3 fl (7.4-10.4); Monocytes # 0.2 K/mm3 (0.1-1.0); Monocytes % 4.9 % (1.7-9.3); Neutrophils # 2.8 K/mm3 (1.8-7.8); Neutrophils % 59.8 % (37.0-80.0); Platelet Count 541 K/mm3 (142-424); Red Blood Count 3.68 M/mm3 (4.20-5.40); Red Cell Distribution Width 14.6 % (11.5-17.5); White Blood Count 4.7 K/mm3 (4.8-10.8)
[2022-05-15 12:51] LABS: Chloride 101 mmol/L (98-107); Potassium 3.7 mmoL/L (3.5-5.1); Sodium 139 mmol/L (136-145)
[2022-05-15 12:54] LABS: Alanine Aminotransferase 29 U/L (12-78); Alkaline Phosphatase 150 U/L (38-126); Anion Gap 15.7 mEq/L (5-15); Aspartate Amino Transferase 33 U/L (14-36); Bilirubin,Direct 0.2 mg/dl (0.0-0.4); Bilirubin,Total 0.2 mg/dl (0.2-1.3); Blood Urea Nitrogen 14 mg/dl (7-17); Calcium 10.2 mg/dl (8.4-10.2); Carbon Dioxide 26 mmol/L (22.0-30.0); Creatine Kinase 111 U/L (30-135); Estimated Glomerular Filt Rate 63 ml/min (>60); GFR (African American) 76 ML/MIN (>60); Glucose 119 mg/dl (74-100)
[2022-05-15 12:55] LABS: Albumin Level 4.1 g/dl (3.5-5.0); Albumin/Globulin Ratio 1.4 (1.1-1.8); Globulin 2.9 g/dL (1.3-3.2)
[2022-05-16 16:16] LABS: C-Reactive Protein 43.6 mg/L (0-4)
== END ==
PROVIDERS: PCP Internal Medicine; Visit Provider Internal Medicine
DX: M25.561 Pain in right knee (principal); R79.82 Elevated C-reactive protein (CRP)
CPT/HCPCS: 80053; 82248; 82550; 85025; 86140

== ENCOUNTER → 2022-05-22 14:44 | Outpatient (CLI) | payer BC, SELFPAY ==
[2022-05-22 15:06] LABS: Basophils # 0.1 K/mm3 (0-0.2); Basophils % 1.7 % (0.1-2.0); Eosinophils # 0.3 K/mm3 (0.0-0.4); Eosinophils % 5.5 % (0.1-12.0); Hematocrit 30.5 % (37.0-47.0); Hemoglobin 9.9 g/dL (12.2-16.2); Lymphocytes # 1.5 K/mm3 (0.7-4.5); Lymphocytes % 26.6 % (10-50); Mean Corpuscular HGB Conc 32.4 g/dL (31.8-35.4); Mean Corpuscular Hemoglobin 26.5 pg (27.0-31.2); Mean Corpuscular Volume 81.8 fl (81-99); Mean Platelet Volume 7.8 fl (7.4-10.4); Monocytes # 0.3 K/mm3 (0.1-1.0); Neutrophils # 3.3 K/mm3 (1.8-7.8); Neutrophils % 61.1 % (37.0-80.0); Platelet Count 508 K/mm3 (142-424); Red Blood Count 3.73 M/mm3 (4.20-5.40); Red Cell Distribution Width 15.2 % (11.5-17.5); White Blood Count 5.4 K/mm3 (4.8-10.8)
[2022-05-22 15:13] LABS: Chloride 103 mmol/L (98-107); Sodium 140 mmol/L (136-145)
[2022-05-22 15:14] LABS: Potassium 3.7 mmoL/L (3.5-5.1)
[2022-05-22 15:16] LABS: Alanine Aminotransferase 28 U/L (12-78); Alkaline Phosphatase 120 U/L (38-126); Anion Gap 12.7 mEq/L (5-15); Aspartate Amino Transferase 35 U/L (14-36); Bilirubin,Direct 0.4 mg/dl (0.0-0.4); Bilirubin,Total 0.4 mg/dl (0.2-1.3); Blood Urea Nitrogen 18 mg/dl (7-17); Carbon Dioxide 28 mmol/L (22.0-30.0); Estimated Glomerular Filt Rate 63 ml/min (>60); GFR (African American) 76 ML/MIN (>60); Glucose 122 mg/dl (74-100)
[2022-05-22 15:17] LABS: Albumin Level 4.1 g/dl (3.5-5.0); Albumin/Globulin Ratio 1.3 (1.1-1.8); Calcium 9.9 mg/dl (8.4-10.2); Creatine Kinase 95 U/L (30-135); Globulin 3.2 g/dL (1.3-3.2); Total Protein,Serum 7.3 g/dl (6.3-8.2)
[2022-05-22 15:22] LABS: C-Reactive Protein 23.3 mg/L (0-4)
== END ==
PROVIDERS: PCP Internal Medicine; Visit Provider Internal Medicine
DX: M25.561 Pain in right knee (principal)
CPT/HCPCS: 80053; 82248; 82550; 85025; 86140

== ENCOUNTER → 2022-05-29 11:58 | Outpatient (CLI) | payer BC, SELFPAY ==
[2022-05-29 12:25] LABS: Chloride 103 mmol/L (98-107); Potassium 3.7 mmoL/L (3.5-5.1); Sodium 140 mmol/L (136-145)
[2022-05-29 12:27] LABS: Blood Urea Nitrogen 19 mg/dl (7-17); Estimated Glomerular Filt Rate 63 ml/min (>60); GFR (African American) 76 ML/MIN (>60)
[2022-05-29 12:28] LABS: Alanine Aminotransferase 32 U/L (12-78); Albumin Level 4.3 g/dl (3.5-5.0); Albumin/Globulin Ratio 1.2 (1.1-1.8); Alkaline Phosphatase 109 U/L (38-126); Anion Gap 15.7 mEq/L (5-15); Aspartate Amino Transferase 40 U/L (14-36); Bilirubin,Direct 0.4 mg/dl (0.0-0.4); Bilirubin,Indirect 0.1 mg/dL (0.0-0.9); Bilirubin,Total 0.5 mg/dl (0.2-1.3); Calcium 9.8 mg/dl (8.4-10.2); Carbon Dioxide 25 mmol/L (22.0-30.0); Creatine Kinase 108 U/L (30-135); Globulin 3.6 g/dL (1.3-3.2); Glucose 115 mg/dl (74-100); Total Protein,Serum 7.9 g/dl (6.3-8.2)
[2022-05-29 12:29] LABS: Basophils # 0.1 K/mm3 (0-0.2); Basophils % 1.4 % (0.1-2.0); Eosinophils # 0.4 K/mm3 (0.0-0.4); Eosinophils % 6.4 % (0.1-12.0); Hematocrit 31.9 % (37.0-47.0); Hemoglobin 10.2 g/dL (12.2-16.2); Lymphocytes # 1.4 K/mm3 (0.7-4.5); Lymphocytes % 24.2 % (10-50); Mean Corpuscular HGB Conc 31.9 g/dL (31.8-35.4); Mean Corpuscular Hemoglobin 25.9 pg (27.0-31.2); Mean Corpuscular Volume 81.3 fl (81-99); Mean Platelet Volume 7.7 fl (7.4-10.4); Monocytes # 0.3 K/mm3 (0.1-1.0); Monocytes % 4.8 % (1.7-9.3); Neutrophils # 3.7 K/mm3 (1.8-7.8); Neutrophils % 63.2 % (37.0-80.0); Platelet Count 495 K/mm3 (142-424); Red Blood Count 3.93 M/mm3 (4.20-5.40); Red Cell Distribution Width 15.5 % (11.5-17.5); White Blood Count 5.9 K/mm3 (4.8-10.8)
[2022-05-29 12:34] LABS: C-Reactive Protein 14.9 mg/L (0-4)
== END ==
PROVIDERS: PCP Internal Medicine; Visit Provider Internal Medicine
DX: M25.561 Pain in right knee (principal)
CPT/HCPCS: 80053; 82248; 82550; 85025; 86140

== ENCOUNTER → 2022-06-12 13:48 | Outpatient (CLI) | payer BC, SELFPAY ==
[2022-06-12 16:10] LABS: Basophils # 0.1 K/mm3 (0-0.2); Basophils % 1.6 % (0.1-2.0); Eosinophils # 0.3 K/mm3 (0.0-0.4); Eosinophils % 5.2 % (0.1-12.0); Hemoglobin 10.4 g/dL (12.2-16.2); Lymphocytes # 1.3 K/mm3 (0.7-4.5); Mean Corpuscular HGB Conc 32.5 g/dL (31.8-35.4); Mean Platelet Volume 8.1 fl (7.4-10.4); Monocytes # 0.3 K/mm3 (0.1-1.0); Monocytes % 6.3 % (1.7-9.3); Neutrophils # 2.9 K/mm3 (1.8-7.8); Platelet Count 521 K/mm3 (142-424); Red Cell Distribution Width 15.2 % (11.5-17.5); White Blood Count 4.8 K/mm3 (4.8-10.8)
[2022-06-12 16:13] LABS: Chloride 105 mmol/L (98-107); Potassium 4.1 mmoL/L (3.5-5.1); Sodium 139 mmol/L (136-145)
[2022-06-12 16:15] LABS: Blood Urea Nitrogen 20 mg/dl (7-17); Estimated Glomerular Filt Rate 50 ml/min (>60); GFR (African American) 60 ML/MIN (>60)
[2022-06-12 16:16] LABS: Alanine Aminotransferase 26 U/L (12-78); Albumin Level 4.2 g/dl (3.5-5.0); Albumin/Globulin Ratio 1.2 (1.1-1.8); Alkaline Phosphatase 94 U/L (38-126); Anion Gap 11.1 mEq/L (5-15); Aspartate Amino Transferase 34 U/L (14-36); Bilirubin,Direct 0.3 mg/dl (0.0-0.4); Bilirubin,Indirect 0.1 mg/dL (0.0-0.9); Bilirubin,Total 0.4 mg/dl (0.2-1.3); Calcium 9.4 mg/dl (8.4-10.2); Carbon Dioxide 27 mmol/L (22.0-30.0); Creatine Kinase 75 U/L (30-135); Globulin 3.4 g/dL (1.3-3.2); Glucose 92 mg/dl (74-100); Total Protein,Serum 7.6 g/dl (6.3-8.2)
[2022-06-12 16:49] LABS: C-Reactive Protein 9.1 mg/L (0-4)
== END ==
PROVIDERS: PCP Internal Medicine
DX: H81.10 Benign paroxysmal vertigo, unspecified ear (principal); R79.82 Elevated C-reactive protein (CRP); D64.9 Anemia, unspecified; M25.561 Pain in right knee; M25.661 Stiffness of right knee, not elsewhere classified
CPT/HCPCS: 80053; 82248; 82550; 85025; 86140

== ENCOUNTER → 2022-09-04 10:36 | Outpatient (CLI) | payer BC, SELFPAY ==
[2022-09-04 11:04] LABS: Hematocrit 38.1 % (37.0-47.0); Hemoglobin 12.8 g/dL (12.2-16.2); Mean Corpuscular HGB Conc 33.5 g/dL (31.8-35.4); Mean Corpuscular Volume 77.7 fl (81-99); Platelet Count 379 K/mm3 (142-424); Red Cell Distribution Width 15.7 % (11.5-17.5); White Blood Count 5.1 K/mm3 (4.8-10.8)
[2022-09-04 11:51] LABS: Albumin Level 4.3 g/dl (3.5-5.0); Anion Gap 9.9 mEq/L (5-15); Blood Urea Nitrogen 17 mg/dl (7-17); Calcium 9.4 mg/dl (8.4-10.2); Carbon Dioxide 25 mmol/L (22.0-30.0); Chloride 105 mmol/L (98-107); Estimated Glomerular Filt Rate 55 ml/min (>60); GFR (African American) 67 ML/MIN (>60); Glucose 98 mg/dl (74-100); Potassium 3.9 mmoL/L (3.5-5.1); Sodium 136 mmol/L (136-145)
== END ==
PROVIDERS: PCP Internal Medicine; Visit Provider Orthopaedic Surgery Adult Reconstructive Orthopaedic Surgery
DX: Z86.19 Personal history of other infectious and parasitic diseases (principal); Z98.890 Other specified postprocedural states
CPT/HCPCS: 36415; 80048; 82040; 85014; 85018; 85048; 85049

== ENCOUNTER 2022-10-24 15:00 | Outpatient (RCR) | payer BC, SELFPAY | END 2022-11-08 17:24 | disposition home or self-care (01) | LOC: PT 15:00 | PROVIDERS: PCP Internal Medicine; Visit Provider Orthopaedic Surgery Adult Reconstructive Orthopaedic Surgery | DX: M25.561 Pain in right knee (principal); Z86.19 Personal history of other infectious and parasitic diseases; Z98.890 Other specified postprocedural states | CPT/HCPCS: 97010; 97014; 97110; 97140; 97163; 97164; 97530; G0283 ==

== ENCOUNTER 2022-11-29 22:43 | Emergency (ER) | payer BC, SELFPAY ==
[2022-11-29 22:40] VITALS: BP 138/68; PULSE 84; RESP 16; TEMP 36.6; O2SAT 99; BMI 29.5
[2022-11-29 22:46] VITALS: BMI 29.5
--- NOTE | 2022-11-29 22:47 | XR_ITS ---
PROCEDURE INFORMATION: Exam: XR Right Knee Exam date and time: 11/29/2022 11:09 PM Age: 67 years old Clinical indication: Injury or trauma; Fall; Blunt trauma; Prior surgery; Surgery date: 1-6 months; Surgery type: Recent surgery for infection in right knee TECHNIQUE: Imaging protocol: Radiologic exam of the right knee. Views: 3 views. COMPARISON: No relevant prior studies available. FINDINGS: Bones/joints: There has been a total knee arthroplasty which appears intact. Alignment is anatomic. No acute fractures. Soft tissues: There is moderate soft tissue swelling anterior to the knee. IMPRESSION: Soft tissue contusion. No acute bony injury.
--- NOTE | 2022-11-29 22:47 | XR_ITS ---
PROCEDURE INFORMATION: Exam: XR Pelvis Exam date and time: 11/29/2022 11:12 PM Age: 67 years old Clinical indication: Injury or trauma; Fall; Blunt trauma (contusions or hematomas); Does not apply; Pelvic region TECHNIQUE: Imaging protocol: Radiologic exam of the pelvis. Views: 1 or 2 view. COMPARISON: No relevant prior studies available. FINDINGS: Bones/joints: Degenerative changes in the lumbar spine and both SI joints. Normal alignment. No acute fractures. Soft tissues: Unremarkable. Intraperitoneal space: There are surgical clips throughout the pelvis. IMPRESSION: No acute injury.
--- NOTE | 2022-11-29 22:47 | XR_ITS ---
PROCEDURE INFORMATION: Exam: XR Chest Exam date and time: 11/29/2022 11:07 PM Age: 67 years old Clinical indication: Injury or trauma; Fall; Blunt trauma (contusions or hematomas) TECHNIQUE: Imaging protocol: Radiologic exam of the chest. Views: 1 view. COMPARISON: CR CXR2V XR chest 2V 07/25/2017 11:06 AM FINDINGS: Lungs: Unremarkable. No consolidation. Pleural spaces: Unremarkable. No pleural effusion. No pneumothorax. Heart/Mediastinum: Unremarkable. No cardiomegaly. Bones/joints: Unremarkable. IMPRESSION: No acute findings.
--- NOTE | 2022-11-29 22:47 | CT_ITS ---
PROCEDURE INFORMATION: Exam: CT Maxillofacial Without Contrast Exam date and time: 11/29/2022 11:13 PM Age: 67 years old Clinical indication: Injury or trauma; Fall TECHNIQUE: Imaging protocol: Computed tomography of the face without contrast. Radiation optimization: All CT scans at this facility use at least one of these dose optimization techniques: automated exposure control; mA and/or kV adjustment per patient size (includes targeted exams where dose is matched to clinical indication); or iterative reconstruction. REPORTING DATA: Count of CT and Cardiac NM exams in prior 12 months: This patient has received 0 known CTs and 0 known cardiac nuclear medicine studies in the 12 months prior to the current study. COMPARISON: No relevant prior studies available. FINDINGS: Orbital cavities: Orbits are normal. Globes are unremarkable. Bones/joints: Nondisplaced bilateral nasal bone fractures. Paranasal sinuses: Mucosal thickening and probable blood in the ethmoid, sphenoid and maxillary sinuses. The ostiomeatal units are patent bilaterally. Soft tissues: There is mild soft tissue swelling in the tip of the nose. IMPRESSION: Bilateral nasal bone fractures.
--- NOTE | 2022-11-29 22:47 | XR_ITS ---
PROCEDURE INFORMATION: Exam: XR Left Knee Exam date and time: 11/29/2022 11:08 PM Age: 67 years old Clinical indication: Injury or trauma; Fall; Blunt trauma; Knee; Left; Prior surgery; Surgery date: 6+ months; Surgery type: Replacement TECHNIQUE: Imaging protocol: Radiologic exam of the left knee. Views: 3 views. COMPARISON: No relevant prior studies available. FINDINGS: Bones/joints: There has been a total knee arthroplasty which appears intact. Alignment is anatomic. No acute fractures. There is spurring on the superior aspect of the patella. Soft tissues: Normal. IMPRESSION: No acute bony injury.
--- NOTE | 2022-11-29 22:47 | XR_ITS ---
PROCEDURE INFORMATION: Exam: XR Left Wrist Exam date and time: 11/29/2022 11:20 PM Age: 67 years old Clinical indication: Injury or trauma; Fall; Blunt trauma (contusions or hematomas); Wrist; Left TECHNIQUE: Imaging protocol: Radiologic exam of the left wrist. Views: 3 or more views. COMPARISON: No relevant prior studies available. FINDINGS: Bones/joints: There is a comminuted fracture of the distal radial metaphysis with dorsal angulation and mild shortening. Bones in the wrist are normally aligned and joint spaces are normal. Degenerative changes at the base of the thumb. Soft tissues: Normal. IMPRESSION: Comminuted fracture of the distal radial metaphysis.
[2022-11-29 23:00] VITALS: BP 143/73; PULSE 85; RESP 14; O2SAT 96
[2022-11-29 23:06] VITALS: BP 153/76; PULSE 83; RESP 16; O2SAT 97
--- NOTE | 2022-11-29 23:21 | HMH.EDFALL ---
Discharge Plan Disposition Patient Disposition: Home, Self-Care Prescriptions Prescriptions: No Action levothyroxine 175 mcg tablet 175 mcg PO DAILY Patient Comments: TAKE 1 TABLET 1 TIME EACH DAY IN THE MORNING amlodipine 5 mg tablet 5 mg PO DAILY Patient Comments: TAKE 1 TABLET 1 TIME EACH DAY doxycycline monohydrate 100 mg tablet 100 mg PO BID omeprazole 20 mg capsule,delayed release(DR/EC) 20 mg PO DAILY Patient Comments: TAKE 1 CAPSULE 1 TIME EACH DAY escitalopram oxalate 20 mg tablet 20 mg PO DAILY Patient Comments: TAKE 1 TABLET 1 TIME EACH DAY valsartan-hydrochlorothiazide 320-12.5 mg tablet 1 tab PO DAILY Patient Comments: TAKE 1 TABLET 1 TIME EACH DAY Lactobacillus acidoph-L.bulgar [Floranex] 1 million cell Tablet 1 tab PO BID Referrals Follow up/Referrals: Alejandro Beck MD [Physician] - See instructions Jamari Childers DO [Staff Physician] - See instructions Provider,Referral, [Referring] - See instructions Clinical Impressions Clinical Impression: Wrist fracture, left, Nasal bone fracture, Laceration of lip Instructions Patient Instructions: DI for Nose Fracture, DI for Wrist Fracture, DI for Moderate Sedation Discharge ED Provider: Linnette (ED)Matty Fall HPI General Chief Complaint: Fall Stated Complaint: fall Time Seen by Provider: 11/29/22 23:00 Mode of Arrival: EMS Source of Information: Patient, Spouse, EMS and Medical Record Limitations: No Limitations Description of Symptoms (Recalled from ER Triage Doc. by RN): pt states she fell over first metal barricade and face hit second one. pt denies loc. pt has abrasion to both knees, face, lip. pt c/o lt wrist pain History of Present Illness HPI Narrative: trip and fell with upper lip lac and facial trauma and lt wrist trauma complaint: fall Onset (ago): hour(s) Fall from: standing Fall witnessed: yes, by family Place fall occurred: street Loss of consciousness: none Prolonged down time: no Symptoms prior to fall: none Context: tripped/slipped Location of injury: face Location of injury - extremities: Left: forearm and Bilateral: knee Severity: moderate Associated symptoms (after fall): denies Related Data Home Medications Medication Instructions Recorded Confirmed Lactobacillus acidoph-L.bulgaricus 1 tab PO BID Supplement 11/29/22 11/29/22 1 million cell tablet (Floranex) amlodipine 5 mg tablet 5 mg PO DAILY High Blood Pressure 11/29/22 11/29/22 doxycycline monohydrate 100 mg 100 mg PO BID post op 11/29/22 11/29/22 tablet escitalopram oxalate 20 mg tablet 20 mg PO DAILY Depression 11/29/22 11/29/22 levothyroxine 175 mcg tablet 175 mcg PO DAILY thyorid 11/29/22 11/29/22 omeprazole 20 mg capsule,delayed 20 mg PO DAILY gerd 11/29/22 11/29/22 release valsartan 320 1 tab PO DAILY High Blood Pressure 11/29/22 11/29/22 mg-hydrochlorothiazide 12.5 mg tablet Allergies Allergy/AdvReac Type Severity Reaction Status Date / Time SULFA (SULFONAMIDE) Allergy Intermediate I-RASH, Uncoded 05/15/17 15:00 [facility] Disclaimer: The information contained in this section may have been updated after the patient was seen, as this information can be updated by other users. Social History Smoking Status: Never smoker alcohol intake: never current occupational status: retired Travel in the last 8 weeks: None ROS Obtained: Yes All systems reviewed & no additional complaints except as documented Physical Exam General General appearance: alert Head Head exam: normocephalic Eye Eye exam: Present PERRL and EOMI ENT ENT exam: Present mucous membranes moist Neck Neck exam: Present trachea midline Respiratory Respiratory exam: Present normal lung sounds bilaterally; Absent respiratory distress Cardiovascular Cardiovascular exam: Present regular rate Abdominal Exam Abdominal exam: Present soft Expanded Upper Ext
[2022-11-29 23:23] LABS: Basophils # 0.1 K/mm3 (0-0.2); Basophils % 0.7 % (0.1-2.0); Eosinophils # 0.3 K/mm3 (0.0-0.4); Eosinophils % 3.2 % (0.1-12.0); Hematocrit 36.3 % (37.0-47.0); Hemoglobin 11.7 g/dL (12.2-16.2); Lymphocytes # 2.3 K/mm3 (0.7-4.5); Lymphocytes % 26.4 % (10-50); Mean Corpuscular HGB Conc 32.4 g/dL (31.8-35.4); Mean Corpuscular Hemoglobin 26.1 pg (27.0-31.2); Mean Corpuscular Volume 80.6 fl (81-99); Mean Platelet Volume 7.7 fl (7.4-10.4); Monocytes # 0.3 K/mm3 (0.1-1.0); Monocytes % 3.8 % (1.7-9.3); Neutrophils # 5.6 K/mm3 (1.8-7.8); Neutrophils % 65.9 % (37.0-80.0); Platelet Count 375 K/mm3 (142-424); Red Cell Distribution Width 14.9 % (11.5-17.5); White Blood Count 8.6 K/mm3 (4.8-10.8)
[2022-11-29 23:25] LABS: Chloride 103 mmol/L (98-107)
[2022-11-29 23:26] LABS: Potassium 3.4 mmoL/L (3.5-5.1); Sodium 137 mmol/L (136-145)
[2022-11-29 23:28] LABS: Alanine Aminotransferase 26 U/L (12-78); Alkaline Phosphatase 111 U/L (38-126); Aspartate Amino Transferase 33 U/L (14-36); Bilirubin,Total 0.3 mg/dl (0.2-1.3); Blood Urea Nitrogen 31 mg/dl (7-17); Creatinine Clearance Estimated 49 mL/min (50-200); Estimated Glomerular Filt Rate 32 ml/min (>60); GFR (African American) 39 ML/MIN (>60)
[2022-11-29 23:29] LABS: Albumin Level 4.2 g/dl (3.5-5.0); Albumin/Globulin Ratio 1.4 (1.1-1.8); Anion Gap 12.4 mEq/L (5-15); Carbon Dioxide 25 mmol/L (22.0-30.0); Glucose 95 mg/dl (74-100); Total Protein,Serum 7.2 g/dl (6.3-8.2)
[2022-11-29 23:37] VITALS: BP 138/74; PULSE 86; RESP 18; O2SAT 98
--- NOTE | 2022-11-29 23:45 | PC.NURSE ---
speaking with Dr. Childers
--- NOTE | 2022-11-29 23:54 | PC.NURSE ---
heron on phone with dr read
[2022-11-30] VITALS (11 sets, daily range): BP systolic 134–159; BP diastolic 69–84; PULSE 86–95; RESP 12–18; TEMP 36.6; O2SAT 93–97
== END 2022-11-30 01:15 | disposition home or self-care (01) ==
PROVIDERS: Emergency Provider Emergency Medicine; PCP Internal Medicine
DX: S52.502A Unspecified fracture of the lower end of left radius, initial encounter for closed fracture (principal); S02.2XXA Fracture of nasal bones, initial encounter for closed fracture; S01.511A Laceration without foreign body of lip, initial encounter; Z23 Encounter for immunization; W01.0XXA Fall on same level from slipping, tripping and stumbling without subsequent striking against object, initial encounter
CPT/HCPCS: 70486; 71045; 72170; 73110; 73562; 80053; 85025; 90714; 96361; 96372; 96374; 96375; 96376; 99152; 99285; J2405

== ENCOUNTER → 2022-11-30 10:53 | Outpatient (CLI) | payer BC, SELFPAY ==
--- NOTE | 2022-11-30 11:03 | ECG_ITS ---
APPROVED REPORT Exam: Resting ECG HR:86 bpm ECG Measurements Heart Rate 86 AXES NH 158 P 16 QRSd 100 QRS -30 QT 357 T 72 QTc 401 Conclusion SINUS RHYTHM WITH OCCASIONAL VENTRICULAR PREMATURE COMPLEXES BORDERLINE LEFT AXIS DEVIATION [QRS AXIS < -20] NONSPECIFIC T-WAVE ABNORMALITY BORDERLINE ECG UNCONFIRMED REPORT Electronically signed by : Bj Abdalla MD 11/30/2022 21:13:09
[2022-11-30 11:41] LABS: Basophils # 0.1 K/mm3 (0-0.2); Basophils % 0.6 % (0.1-2.0); Eosinophils # 0.2 K/mm3 (0.0-0.4); Eosinophils % 2.2 % (0.1-12.0); Hematocrit 35.9 % (37.0-47.0); Hemoglobin 11.8 g/dL (12.2-16.2); Lymphocytes # 1.6 K/mm3 (0.7-4.5); Lymphocytes % 18.3 % (10-50); Mean Corpuscular HGB Conc 32.8 g/dL (31.8-35.4); Mean Corpuscular Hemoglobin 26.5 pg (27.0-31.2); Mean Platelet Volume 7.8 fl (7.4-10.4); Monocytes # 0.5 K/mm3 (0.1-1.0); Monocytes % 6.1 % (1.7-9.3); Neutrophils # 6.3 K/mm3 (1.8-7.8); Neutrophils % 72.8 % (37.0-80.0); Platelet Count 364 K/mm3 (142-424); Red Blood Count 4.43 M/mm3 (4.20-5.40); Red Cell Distribution Width 14.8 % (11.5-17.5); White Blood Count 8.7 K/mm3 (4.8-10.8)
[2022-11-30 12:07] LABS: Alanine Aminotransferase 27 U/L (12-78); Albumin Level 4.4 g/dl (3.5-5.0); Albumin/Globulin Ratio 1.6 (1.1-1.8); Alkaline Phosphatase 103 U/L (38-126); Anion Gap 12.3 mEq/L (5-15); Aspartate Amino Transferase 35 U/L (14-36); Bilirubin,Total 0.7 mg/dl (0.2-1.3); Blood Urea Nitrogen 28 mg/dl (7-17); Calcium 9.4 mg/dl (8.4-10.2); Carbon Dioxide 26 mmol/L (22.0-30.0); Chloride 105 mmol/L (98-107); Estimated Glomerular Filt Rate 50 ml/min (>60); GFR (African American) 60 ML/MIN (>60); Globulin 2.8 g/dL (1.3-3.2); Glucose 105 mg/dl (74-100); Potassium 4.3 mmoL/L (3.5-5.1); Sodium 139 mmol/L (136-145); Total Protein,Serum 7.2 g/dl (6.3-8.2)
== END ==
PROVIDERS: PCP Internal Medicine; Visit Provider Orthopaedic Surgery
DX: Z01.818 Encounter for other preprocedural examination (principal); S62.102A Fracture of unspecified carpal bone, left wrist, initial encounter for closed fracture
CPT/HCPCS: 36415; 80053; 85025; 93005

== ENCOUNTER 2022-12-01 06:02 | Day surgery (SDC) | payer BC, SELFPAY ==
[2022-12-01] VITALS (10 sets, daily range): BP systolic 102–133; BP diastolic 65–78; PULSE 84–96; RESP 16–18; TEMP 36.4–37.2; O2SAT 95–98; BMI 28.8
--- NOTE | 2022-12-01 07:00 | P.PN_ITS ---
[facility] Disclaimer: The information contained in this section may have been updated after the patient was seen, as this information can be updated by other users. Medical History (Updated 12/01/22 @ 06:22 by Eder Darnell RN) Anxiety GERD (gastroesophageal reflux disease) HTN (hypertension) Hypothyroid Surgical History (Updated 12/01/22 @ 06:23 by Eder Darnell RN) History of History of elbow surgery History of knee surgery History of nasal surgery Family History (Updated 12/01/22 @ 06:24 by Eder Darnell RN) Other Family history of COPD (chronic obstructive pulmonary disease) Family history of heart disease Social History (Updated 12/01/22 @ 06:25 by Eder Darnell RN) Smoking Status: Never smoker alcohol intake: never substance use type: denies use current occupational status: retired Travel in the last 8 weeks: None [facility] Anesthesia Checklist Patient Identification Patient Identification: Arm Band and Verbal (Name & ) Structural Data Admitted From: Home Planned Operative Procedure/s: orif left wrist Consent for Planned Operative Procedure(s) Verified: Yes Verified Documents: Surgical Consent NPO Status Verified Time NPO: 00:00 Additional verifications Anesthesia Reactions: No Hx Blood Transfusions: No Blood Transfusion Reaction: No Airway Assessment C-Spine Mobility Assessed: Yes TMJ Mobility Assessed: Yes Dentition: Good Dentition Neurological Assessment Level of Consciousness: Awake and Alert Hx Seizures: No Anesthesia Plan Anesthesia Risk discussed: Yes ASA Class: II Anesthesia Type: General w/block
--- NOTE | 2022-12-01 08:50 | XR_ITS ---
FINAL REPORT CLINICAL HISTORY: LEFT WRIST IN OR, ft 30sec FINDINGS: FLUOROSCOPY 4 spot images were obtained of the left wrist in the operating room utilizing 30 seconds. IMPRESSION: Fluoroscopy as stated above Reviewed, Interpreted and Dictated by Jorge Malcolm III, MD Transcribed by Ember Aguilar Authenticated and [facility]
--- NOTE | 2022-12-01 09:10 | P.PNANES_ITS ---
[facility] Anesthesia Record Part I Anesthesia Record I Intake, IV Amount: 1,100 Estimated blood loss (mL): 2 Urine output (mL): 0 Blood Pressure: 132/69 SaO2: 95 Pulse Rate: 96 Respiratory Rate: 16 Temperature: 97.5 F Patient is:: Awake and Stable Stable to PACU at:: 09:10
--- NOTE | 2022-12-01 09:12 | P.OP_ITS ---
Date of procedure: 12/01/22 Pre-op Diagnosis:: Left distal radius fracture intra-articular 3 part Post-op Diagnosis:: Same Procedure performed:: Open reduction internal fixation left distal radius fracture intra-articular 3 part with volar plating Surgeon:: Jamari Childers DO ANIMAL SERVICES OFFICER:: Other Anesthesia: GETA and regional Estimated blood loss (mL): 0 Clinical Note:: Implants: Synthes volar plate system Operative findings:: Comminuted intra-articular distal radius fracture Operative note:: Patient was identified preoperatively. Left wrist was marked with yes my initials. Underwent a regional block with anesthesia. Taken the operating room placed upon the radiolucent bed. Hand table placed. General anesthesia was administered airway secured. Left upper extremity prepped draped normal sterile fashion. Once prepped and draped final operative timeout performed to identify proper patient procedure and extremity. Everyone involved the case agreed. No counter indications to beginning. Did receive preoperative antibiotics. Marking pen was used to mirian plan incision over the volar wrist. X-rays with C arm were brought in to show the nature of the fracture. Esmarch was used to exsanguinate the extremity. Pneumatic tourniquet inflated to 250 mmHg. Skin knife is used to incise through skin. Careful dissection was taken down over the FCR tendon. FCR tendon sheath was opened. FCR tendon retracted radially throughout the procedure to protect the radial artery. Floor of the FCR opened. Pronator quadratus muscle split off of the distal radius. There was traumatic tearing of muscle and comminution at the fracture site. Reduction of the fracture was performed with the help of a freer elevator traction. K wire was then placed for pulmonary fixation. X-rays were taken to confirm proper reduction. Synthes standard left-sided volar plate selected. Placed on the radius and a cortical screw was placed in the shaft for placement of the plate in proper alignment. K wire was used to hold the plate in place. Distal locking screws were then placed under direct visualization on the C arm. Additional locking screw placed in the shaft. Pictures taken AP and lateral views showing good reduction with the radius out to length and methodist of neutral alignment. Copious irrigation of the wound performed. Deep layers closed with Vicryl st itch. Skin closed with 3-0 nylon stitch. Sterile dressing placed. Volar splint placed. Patient waken anesthesia taken recovery in stable condition. Tourniquet time (min): 59 Condition: stable Disposition: PACU Complications:: None apparent
--- NOTE | 2022-12-01 10:33 | P.PNANES_ITS ---
[facility] Anesthesia Record Part II Anesthesia Record Part II Discharge Time: 09:40 Destination: Surgical Day Care (OP Surgery) PACU nurse assessment reviewed?: Yes Patient Condition:: Good Anesthesia Complications:: None Swallowing reflex intact?: Yes Cyanosis?: No Blood Pressure: 120/67 Pulse Rate: 86 Temperature: 98.2 F Mental Status: Alert & Oriented Pain level:: 0 Nausea and/or vomitting:: None Intake, IV Amount: 0
== END 2022-12-01 10:15 | disposition home or self-care (01) ==
PROVIDERS: PCP Internal Medicine; Visit Provider Orthopaedic Surgery
PROC: (CPT 25609; principal; 2022-12-01 07:30)
DX: S52.572A Other intraarticular fracture of lower end of left radius, initial encounter for closed fracture (principal); W01.198A Fall on same level from slipping, tripping and stumbling with subsequent striking against other object, initial encounter; Y92.480 Sidewalk as the place of occurrence of the external cause; I10 Essential (primary) hypertension; Z79.899 Other long term (current) drug therapy
CPT/HCPCS: 25609; 73100; 96374; C1713; C1776; J2405

== ENCOUNTER → 2022-12-19 10:32 | Outpatient (CLI) | payer BC, SELFPAY ==
--- NOTE | 2022-12-19 10:39 | XR_ITS ---
FINAL REPORT CLINICAL HISTORY: Lt wrist pain. F/u surgery in November COMPARISON: 11/29/2022 FINDINGS: LEFT WRIST SERIES Three views of the left wrist were obtained. There are postoperative ORIF changes of the distal radius. There is near anatomic reduction of the distal radial fracture. The hardware is unremarkable. A fracture of the ulnar styloid process is seen. IMPRESSION: Postoperative ORIF changes. Reviewed, Interpreted and Dictated by Connor Yarbrough MD Transcribed by Ember Aguilar Authenticated and [facility] [place] [place]
== END ==
PROVIDERS: PCP Internal Medicine; Visit Provider Orthopaedic Surgery
DX: M25.532 Pain in left wrist (principal); S62.102A Fracture of unspecified carpal bone, left wrist, initial encounter for closed fracture
CPT/HCPCS: 73110

== ENCOUNTER 2022-12-19 12:07 | Outpatient (RCR) | payer BC, SELFPAY | END 2022-12-19 13:05 | disposition home or self-care (01) | LOC: OT 12:07 | PROVIDERS: Visit Provider Orthopaedic Surgery | DX: S52.502A Unspecified fracture of the lower end of left radius, initial encounter for closed fracture (principal) | CPT/HCPCS: 97763 ==

== ENCOUNTER → 2023-01-16 10:00 | Outpatient (CLI) | payer BC, SELFPAY ==
--- NOTE | 2023-01-16 10:03 | XR_ITS ---
FINAL REPORT CLINICAL HISTORY: Lt wrist pain COMPARISON: 12/19/2022 FINDINGS: LEFT WRIST Three views demonstrate sideplate and screws securing the distal radius. There is ununited fracture fragment in the ulnar styloid. Overlying cast has been removed. The visualized joint spaces are normally aligned. The soft tissues are unremarkable. IMPRESSION: Postoperative changes as above. Otherwise, unchanged exam. Reviewed, Interpreted and Dictated by Ankush Portillo MD Transcribed by Sherrie Grullon Authenticated and [facility]
== END ==
PROVIDERS: PCP Internal Medicine; Visit Provider Orthopaedic Surgery
DX: M25.532 Pain in left wrist (principal); S52.502A Unspecified fracture of the lower end of left radius, initial encounter for closed fracture
CPT/HCPCS: 73110

== ENCOUNTER 2023-09-03 15:55 | Outpatient (CLI) | payer BC, SELFPAY ==
--- NOTE | 2023-09-03 | CA_ITS ---
FINAL REPORT TECHNIQUE: Color Doppler, duplex Doppler and compression sonography of the right lower extremity venous system was performed. 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 Red angry area at the medial pop fossa. FINDINGS: There is no evidence of deep venous thrombosis from the level of the groin to the calf. The veins are patent and compressible. IMPRESSION: No evidence of deep venous thrombosis right lower extremity. Reviewed, Interpreted and Dictated by Jorge Malcolm III, MD Transcribed by Kylah Arteaga Authenticated and [facility]
== END 2023-09-03 23:59 ==
PROVIDERS: PCP Internal Medicine; Visit Provider Internal Medicine
DX: M79.661 Pain in right lower leg (principal); R60.0 Localized edema
CPT/HCPCS: 93971

== ENCOUNTER 2024-08-07 15:30 | Outpatient (CLI) | payer BC, SELFPAY ==
[2024-08-07 18:55] LABS: Basophils # 0.1 K/mm3 (0-0.2); Basophils % 0.8 % (0.1-2.0); Eosinophils # 0.2 K/mm3 (0.0-0.4); Eosinophils % 2.5 % (0.1-12.0); Hematocrit 38.4 % (37.0-47.0); Hemoglobin 13.1 g/dL (12.2-16.2); Lymphocytes # 1.5 K/mm3 (0.7-4.5); Mean Corpuscular HGB Conc 34.1 g/dL (31.8-35.4); Mean Corpuscular Hemoglobin 29.6 pg (27.0-31.2); Mean Corpuscular Volume 86.7 fl (81-99); Mean Platelet Volume 10.1 fl (7.4-10.4); Monocytes # 0.6 K/mm3 (0.1-1.0); Monocytes % 6.6 % (1.7-9.3); Neutrophils # 5.9 K/mm3 (1.8-7.8); Neutrophils % 71.9 % (37.0-80.0); Platelet Count 341 K/mm3 (142-424); Red Blood Count 4.43 M/mm3 (4.20-5.40); Red Cell Distribution Width 12.4 % (11.5-17.5); White Blood Count 8.3 K/mm3 (4.8-10.8)
[2024-08-07 20:02] LABS: Albumin Level 4.7 g/dl (3.5-5.0); Chloride 103 mmol/L (98-107); Potassium 4.3 mmoL/L (3.5-5.1); Sodium 137 mmol/L (136-145)
[2024-08-07 20:04] LABS: Alanine Aminotransferase 36 U/L (12-78); Anion Gap 12.3 mEq/L (5-15); Aspartate Amino Transferase 34 U/L (14-36); Blood Urea Nitrogen 20 mg/dl (7-17); Carbon Dioxide 26 mmol/L (22.0-30.0); Estimated Glomerular Filt Rate 55 ml/min (>60); GFR (African American) 67 ML/MIN (>60)
[2024-08-07 20:05] LABS: Albumin/Globulin Ratio 1.9 (1.1-1.8); Alkaline Phosphatase 103 U/L (38-126); Bilirubin,Total 0.3 mg/dl (0.2-1.3); Calcium 9.2 mg/dl (8.4-10.2); Chol/HDL Ratio 6.4 (1-3.5); Cholesterol 242 mg/dl (140-200); Globulin 2.5 g/dL (1.3-3.2); Glucose 97 mg/dl (74-100); HDL Cholesterol 38 mg/dl (40-60); Total Protein,Serum 7.2 g/dl (6.3-8.2); Triglycerides 347 mg/dl (30-150); VLDL Cholesterol 69 mg/dL (0-40)
[2024-08-07 20:32] LABS: Thyroid Stimulating Hormone 0.36 uIU/mL (0.465-4.68)
[2024-08-07 20:43] LABS: Free T4 (Free Thyroxine) 2.09 ng/dl (0.78-2.19)
[2024-08-07 21:01] LABS: Direct LDL Cholesterol 134.23 mg/dL (100-129)
== END 2024-08-07 23:59 | disposition home or self-care (01) ==
LOC: LAB.DROPOF 08-08 10:25
PROVIDERS: PCP Internal Medicine; Visit Provider Internal Medicine
DX: D64.9 Anemia, unspecified (principal); I10 Essential (primary) hypertension; E78.5 Hyperlipidemia, unspecified; E03.9 Hypothyroidism, unspecified
CPT/HCPCS: 80053; 80061; 84439; 84443; 85025

== ENCOUNTER 2024-10-24 07:32 | Day surgery (SDC) | payer BC, SELFPAY ==
[2024-10-23 13:16] VITALS: BMI 28.8
--- NOTE | 2024-10-24 06:22 | P.HP_ITS ---
HPI HPI HPI: Patient is a 69-year-old female from [facility]. She has a family history of colon cancer. I performed previous colonoscopy on her on 01/24/2005 and again 04/21/2014 at which time she was found to have diverticulosis. Recommendations were for follow-up colonoscopy in 5 years. [facility] Disclaimer: The information contained in this section may have been updated after the patient was seen, as this information can be updated by other users. Medical History (Updated 10/24/24 @ 08:36 by Jorge Hernandez MD) Anxiety GERD (gastroesophageal reflux disease) Hypothyroid HTN (hypertension) Surgical History History of History of nasal surgery History of elbow surgery History of knee surgery Family History Other Family history of COPD (chronic obstructive pulmonary disease) Family history of heart disease Social History Smoking Status: Never smoker alcohol intake: never substance use type: denies use current occupational status: retired Travel in the last 8 weeks?: None caffeine: Yes Have you lived/traveled outside [place] in past 30 days?: No Contact w/someone who lives/traveled outside [place] past 30 days?: No Exposure to someone with infectious disease in past 14 days?: No Do you have a fever (greater than 100.4 F or 38 C)?: No Have you tested positive for COVID-19?: No Exposed to someone with COVID-19 in past 14 days?: No Do you have a sore throat?: No Do you have a cough?: No Do you have any weakness?: No Are you experiencing any nausea/vomitting?: No Do you have any diarrhea?: No Are you experiencing any unusual bleeding?: No Do you have any muscle aches/pain?: No Do you have any abdominal pain?: No Are you experiencing loss of taste or smell?: No Other Medical History Have you received the Flu Vaccine for this season: Yes Have you received the Pneumonia Vaccine: Yes Meds Home Medications and Allergies Home Medications ?Medication ?Instructions ?Recorded ?Confirmed ?Type Lactobacillus acidoph-L.bulgaricus 1 tab PO DAILY Supp lement 11/29/22 10/24/24 History 1 million cell tablet (Floranex) aspirin 81 mg chewable tablet 81 mg PO DAILY Supplemen t 12/01/22 10/23/24 History meclizine 25 mg tablet 25 mg PO DAILY PRN Dizziness Or 03/24/24 10/24/24 History Vertigo levothyroxine 175 mcg tablet 175 mcg PO DAILY thyorid #90 tabs 08/04/24 10/23/24 Rx amlodipine 5 mg tablet 5 mg PO DAILY High Blood Pre ssure 08/07/24 10/24/24 Rx #90 tabs clobetasol 0.05 % topical cream 1 applic topical BID P RN Eczema 2 08/07/24 10/24/24 Rx weeks #60 grams omeprazole 20 mg capsule,delayed See Rx Instructions . Route 08/07/24 10/23/24 Rx release .COMPLEX #90 caps atorvastatin 20 mg tablet 20 mg PO DAILY #90 tabs 07/2610/23/24 Rx valsartan 320 1 tab PO DAILY High Blood Pr essure 08/19/24 10/23/24 Rx mg-hydrochlorothiazide 12.5 mg #90 tabs tablet sodium,potassium,mag sulfates 17.5 See Rx Instructions PO .COMPLEX 10/02/24 10/23/24 Rx gram-3.13 gram-1.6 gram oral soln #354 mL (Suprep Bowel Prep Kit) diclofenac sodium 75 mg 75 mg PO BID PRN pain #60 ta bs 10/03/24 10/23/24 Rx tablet,delayed release escitalopram oxalate 20 mg tablet 20 mg PO DAILY Depre ssion #90 tabs 10/03/24 10/23/24 Rx New Prescriptions to Start Prescriptions: Allergies Allergy/AdvReac Type Severity Reaction Status Date / Time cefepime Allergy Intermediate Irritable Verified 10/24/24 07:47 SULFA (SULFONAMIDE) Allergy Intermediate I-RASH, Uncoded 10/24/24 07:47 ITCHING Exam Data for Last 24 hours I & O for Last 24 hours: Intake & Output 10/21/24 10/22/24 10/23/24 10/24/24 11:59 11:59 11:59 11:59 Weight 195 lb Constitutional Constitutional: no acute distress *Routine HEENT Exam Head: Present normocephalic Eye: Present EOMI and PERRL ENT: Present mucous membranes moist *Routine Neck Exam Neck: Present supple; Absent lymphadenopathy *Routine Respiratory Exam Respiratory: Present CTA bilaterally *Routine Cardiovascular Exam Cardiovascular: Present RRR *Routine Abdominal Exam Abdominal: Present soft and normoactive bowel sounds; Absent tenderness *Routine Rectal Exam Rectal:: deferred *Routine Genitalia Exam Genitalia:: deferred *Routine Extremities Exam Extremities: Absent cyanosis, clubbing or edema *Routine Skin Exam Skin: Present warm; Absent rash *Routine Neurological Exam Neurological: Present alert and oriented X3 Assessment and Plan *Assessment and plan (1) Encounter for screening colonoscopy: Status: Acute Category: Medical Code(s): Z12.11 - Encounter for screening for malignant neoplasm of colon Plan Colonoscopy
[2024-10-24 07:52] VITALS: BP 153/86; PULSE 68; RESP 18; TEMP 36.4; O2SAT 93
[2024-10-24] MEDS: LACTATED RINGERS 1000ML 1,000 ML 50 ML IV (08:01)
--- NOTE | 2024-10-24 08:36 | HMH.SCOPE ---
Procedure: Date: 10/24/24 Patient Date of :: 1955 Procedure Performed:: Total colonoscopy to terminal ileum Indications:: Patient is a 69-year-old female. She has somewhat of a family history of colon cancer with her maternal grandmother having colon cancer. I have performed previous colonoscopies in 2004 and in 2013 which revealed no adenomatous polyps. Performing Provider:: Jorge Hernandez MD Referring Provider:: Twin Cortez MD Sedation:: MAC sedation Procedure:: Patient history was obtained and appropriate physical examination was performed. Patient's medications and allergies were reviewed. Informed consent was obtained after explaining the benefits, alternatives, and risks of the procedure including, but not limited to, bleeding, perforation, missed lesions, and adverse reaction to anesthesia medications. Patient was transported to endoscopy procedure room. Patient was connected to monitoring devices. Throughout the procedure the patient's blood pressure, pulse, and oxygen saturations were monitored continuously. Patient identification and planned procedure were verified by the staff. Patient was positioned in lateral decubitus position. Digital anorectal exam was performed. Variable stiffness Olympus colonoscope was inserted and advanced under direct visualization to the cecum. Adequacy of the colonic preparation was noted. The colonoscope was advanced a short distance into the terminal ileum. The colonoscope was then slowly withdrawn while carefully examining the color, texture, anatomy, and integrity of the mucosoa circumferentially. Within the rectum retroflexion was performed. Colonoscope was then withdrawn. Findings:: Rare sigmoid diverticulosis No polyps Recommendations:: Repeat colonoscopy up to 10 years Complications:: None immediately apparent Estimated blood obtained (mL): 0 Colonoscopy Component Colonoscopy Component Was a colonoscopy performed during today's procedure?: Yes Recommended follow up colonoscopy of at least 10 years?: Yes
[2024-10-24 08:38] VITALS: BP 89/47; PULSE 57; RESP 16; TEMP 36.2; O2SAT 93
--- NOTE | 2024-10-24 08:38 | EXP.ANES.CKL ---
[facility] Disclaimer: The information contained in this section may have been updated after the patient was seen, as this information can be updated by other users. Medical History (Updated 10/24/24 @ 08:36 by Jorge Hernandez MD) Anxiety GERD (gastroesophageal reflux disease) Hypothyroid HTN (hypertension) Surgical History History of History of nasal surgery History of elbow surgery History of knee surgery Family History Other Family history of COPD (chronic obstructive pulmonary disease) Family history of heart disease Social History Smoking Status: Never smoker alcohol intake: never substance use type: denies use current occupational status: retired Travel in the last 8 weeks?: None caffeine: Yes Have you lived/traveled outside [place] in past 30 days?: No Contact w/someone who lives/traveled outside [place] past 30 days?: No Exposure to someone with infectious disease in past 14 days?: No Do you have a fever (greater than 100.4 F or 38 C)?: No Have you tested positive for COVID-19?: No Exposed to someone with COVID-19 in past 14 days?: No Do you have a sore throat?: No Do you have a cough?: No Do you have any weakness?: No Are you experiencing any nausea/vomitting?: No Do you have any diarrhea?: No Are you experiencing any unusual bleeding?: No Do you have any muscle aches/pain?: No Do you have any abdominal pain?: No Are you experiencing loss of taste or smell?: No [facility] Anesthesia Checklist Patient Identification Patient Identification: Arm Band Structural Data Admitted From: Home Planned Operative Procedure/s: Colonoscopy Consent for Planned Operative Procedure(s) Verified: Yes Verified Documents: Surgical Consent and History and Physical NPO Status Verified Time NPO: 00:00 Additional verifications Anesthesia Reactions: No Hx Blood Transfusions: No Blood Transfusion Reaction: No Airway Assessment Mallampati Score:: Class II C-Spine Mobility Assessed: Yes TMJ Mobility Assessed: Yes Dentition: Good Dentition Neurological Assessment Level of Consciousness: Awake, Alert and Appropriate Anesthesia Plan Anesthesia Risk discussed: Yes Anesthesia Plan: Verified ASA Class: II Anesthesia Type: MAC
[2024-10-24 08:48] VITALS: BP 93/49; PULSE 57; RESP 17; O2SAT 98
[2024-10-24 08:58] VITALS: BP 99/50; PULSE 56; RESP 17; O2SAT 96
[2024-10-24 09:08] VITALS: BP 116/69; PULSE 56; RESP 18; O2SAT 100
== END 2024-10-24 09:15 | disposition home or self-care (01) ==
PROVIDERS: PCP Internal Medicine; Visit Provider Surgery
PROC: 0DJD8ZZ Inspection of Lower Intestinal Tract, Via Natural or Artificial Opening Endoscopic (ICD-10-PCS; CPT 45378; principal; 2024-10-24 08:30)
DX: Z12.11 Encounter for screening for malignant neoplasm of colon (principal); Z80.0 Family history of malignant neoplasm of digestive organs; K57.30 Diverticulosis of large intestine without perforation or abscess without bleeding; F41.9 Anxiety disorder, unspecified; K21.9 Gastro-esophageal reflux disease without esophagitis; E03.9 Hypothyroidism, unspecified; I10 Essential (primary) hypertension; F32.A Depression, unspecified; Z88.8 Allergy status to other drugs, medicaments and biological substances; Z88.2 Allergy status to sulfonamides; Z79.899 Other long term (current) drug therapy; Z79.890 Hormone replacement therapy; Z79.82 Long term (current) use of aspirin
CPT/HCPCS: 45378; J2003; J2704; J7120